=== PATIENT | female | born 1965 | race Caucasian/White ===

== ENCOUNTER 2018-01-10 09:21 | Emergency (ER) | payer MEDICARE, MEDICAID ==
[~2018-01-10] VITALS: Ht 172.7 cm; Wt 81.8 kg
[2018-01-10] MEDS ORDERED: MIRT-6 PO (09:29)
[2018-01-10] MEDS ORDERED: ESCI5TAB PO (09:31)
[2018-01-10] MEDS ORDERED: NAPR-1024 PO (09:31)
[2018-01-10] MEDS ORDERED: BUSP30TA2 PO (09:31)
[2018-01-10] MEDS ORDERED: ALPR1TAB2 PO (09:31)
[2018-01-10 11:30] VITALS: BP 117/79
== END 2018-01-10 11:43 | disposition home or self-care (01) ==
LOC: EMS 09:22
DX: L03.113 Cellulitis of right upper limb (principal); F41.9 Anxiety disorder, unspecified; F32.9 Major depressive disorder, single episode, unspecified; F17.210 Nicotine dependence, cigarettes, uncomplicated; Z98.890 Other specified postprocedural states; Z79.899 Other long term (current) drug therapy
CPT/HCPCS: 99284

== ENCOUNTER 2018-01-12 13:55 | Emergency (ER) | payer MEDICARE, MEDICAID ==
[~2018-01-12] VITALS: Ht 167.6 cm; Wt 113.6 kg
[~2018-01-12 13:55] MED LIST: ALPR1TAB2 PO; BUSP30TA2 PO; ESCI5TAB PO; MIRT-6 PO; NAPR-1024 PO
[2018-01-12 14:08] VITALS: BP 138/86
[2018-01-12] MEDS ORDERED: CEPH500 PO (15:07)
[2018-01-12] MEDS ORDERED: HYDROCODONE/ACETAMINOPHEN 5-325 MG TABLET PO ONE (16:45)
[2018-01-12] MEDS ORDERED: LIDOCAINE HCL/PF 1% 2 ML VIAL IM ONE (16:45)
[2018-01-12] MEDS ORDERED: CefTRIAXone SODIUM 1 GM/VIAL IM ONE (16:45)
[2018-01-12] MEDS ORDERED: ACETAMINOPHEN 325 MG TABLET PO ONE (16:45)
== END 2018-01-12 17:30 | disposition home or self-care (01) ==
LOC: EMS 13:56
DX: L02.511 Cutaneous abscess of right hand (principal); K13.0 Diseases of lips; F41.9 Anxiety disorder, unspecified; F31.9 Bipolar disorder, unspecified; F17.210 Nicotine dependence, cigarettes, uncomplicated
CPT/HCPCS: 10060; 96372; 99283; J0696; J3490